=== PATIENT | female | born 1935 | race Caucasian/White ===

== ENCOUNTER → 2021-10-16 | Outpatient (CLI) | payer OTHER ==
[2021-10-16 12:57] LABS: Basophils # (auto) 0 10 ^3/uL (0-0.2); Basophils % (auto) 0.4 % (0.0-2.0); Eosinophils # (auto) 0.2 10 ^3/uL (0-0.8); Eosinophils % (auto) 2.9 % (0.0-7.0); Hematocrit 42.3 % (36.0-46.0); Lymphocytes # (auto) 1.5 10 ^3/uL (0.4-5.4); Lymphocytes % (auto) 27.2 % (10.0-50.0); Mean Corpuscular Hemoglobin 29.2 pg (28.0-32.0); Mean Corpuscular Hgb Conc. 33.2 g/dL (32.0-36.0); Mean Corpuscular Volume 87.8 fL (80.0-100.0); Monocytes # (auto) 0.3 10 ^3/uL (0-1.3); Monocytes % (auto) 6.2 % (0.0-12.0); Neutrophils # (auto) 3.4 10 ^3/uL (1.6-8.6); Neutrophils % (auto) 63.3 % (37.0-80.0); Red Blood Cells 4.81 10^6/uL (4.0-5.20); Red Cell Distribution Width 15.3 % (11.8-14.3); White Blood Cell 5.4 10^3/uL (4.4-10.8)
[2021-10-16 13:14] LABS: Albumin 2.7 g/dL (3.4-5.0); Calcium 7.4 mg/dL (8.5-10.1)
[2021-10-16 13:18] LABS: BUN/Creatinine Ratio 18.5; Bilirubin, Total 0.5 mg/dL (0.2-1.0); CRP High Sensitivity 0.48 mg/dL (< 0.3); Total Protein 6.8 g/dL (6.4-8.2)
[2021-10-17 10:09] LABS: Potassium 2.9 mmol/L (3.5-5.1)
[2021-10-17 16:08] LABS: Potassium 3.6 mmol/L (3.5-5.1)
== END | disposition home or self-care (01) ==
LOC: EDSTATUS 11:26 → LAB 12:15
PROVIDERS: ATTEND Podiatrist
DX: E78.6 Lipoprotein deficiency (principal)
CPT/HCPCS: 36415; 80051; 80053; 85025; 85652; 86141

== ENCOUNTER → 2021-10-24 | Outpatient (CLI) | payer OTHER ==
[2021-10-24 13:03] LABS: Basophils # (auto) 0 10 ^3/uL (0-0.2); Basophils % (auto) 0.7 % (0.0-2.0); Eosinophils # (auto) 0.2 10 ^3/uL (0-0.8); Eosinophils % (auto) 4.3 % (0.0-7.0); Hemoglobin 12.5 g/dL (12.2-16.2); Lymphocytes # (auto) 1.2 10 ^3/uL (0.4-5.4); Lymphocytes % (auto) 23.9 % (10.0-50.0); Mean Corpuscular Hemoglobin 29.5 pg (28.0-32.0); Mean Corpuscular Hgb Conc. 33.9 g/dL (32.0-36.0); Monocytes # (auto) 0.4 10 ^3/uL (0-1.3); Monocytes % (auto) 8.6 % (0.0-12.0); Neutrophils # (auto) 3.1 10 ^3/uL (1.6-8.6); Neutrophils % (auto) 62.5 % (37.0-80.0); Red Blood Cells 4.25 10^6/uL (4.0-5.20); Red Cell Distribution Width 14.3 % (11.8-14.3)
[2021-10-24 13:16] LABS: Albumin 2.4 g/dL (3.4-5.0); Calcium 7.2 mg/dL (8.5-10.1)
[2021-10-24 13:24] LABS: BUN/Creatinine Ratio 27.1; Bilirubin, Total 0.6 mg/dL (0.2-1.0); CRP High Sensitivity 0.86 mg/dL (< 0.3); Total Protein 5.8 g/dL (6.4-8.2)
[2021-10-24 13:28] LABS: Potassium 2.5 mmol/L (3.5-5.1)
== END | disposition home or self-care (01) ==
LOC: LAB 12:48
PROVIDERS: ATTEND Podiatrist
DX: S71.029A Laceration with foreign body, unspecified hip, initial encounter (principal); L03.90 Cellulitis, unspecified; X58.XXXA Exposure to other specified factors, initial encounter; Y93.89 Activity, other specified; Y92.89 Other specified places as the place of occurrence of the external cause; Y99.8 Other external cause status
CPT/HCPCS: 36415; 80053; 82550; 85025; 85652; 86141

== ENCOUNTER → 2021-11-01 | Outpatient (CLI) | payer OTHER ==
[2021-11-01 17:07] LABS: Potassium 3.7 mmol/L (3.5-5.1)
== END | disposition home or self-care (01) ==
LOC: LAB 16:07
PROVIDERS: ATTEND Internal Medicine
DX: E87.6 Hypokalemia (principal)
CPT/HCPCS: 36415; 80051

== ENCOUNTER → 2021-12-29 | Outpatient (CLI) | payer OTHER ==
[2021-12-29 14:36] LABS: Basophils # (auto) 0 10 ^3/uL (0-0.2); Basophils % (auto) 0.7 % (0.0-2.0); Eosinophils # (auto) 0.2 10 ^3/uL (0-0.8); Hematocrit 46.1 % (36.0-46.0); Hemoglobin 14.6 g/dL (12.2-16.2); Lymphocytes # (auto) 1.2 10 ^3/uL (0.4-5.4); Lymphocytes % (auto) 22.7 % (10.0-50.0); Mean Corpuscular Hemoglobin 28.1 pg (28.0-32.0); Mean Corpuscular Hgb Conc. 31.6 g/dL (32.0-36.0); Mean Corpuscular Volume 88.9 fL (80.0-100.0); Monocytes # (auto) 0.5 10 ^3/uL (0-1.3); Monocytes % (auto) 8.8 % (0.0-12.0); Neutrophils # (auto) 3.4 10 ^3/uL (1.6-8.6); Neutrophils % (auto) 63.8 % (37.0-80.0); Nucleated Red Blood Cells % 0.1 %; Red Blood Cells 5.19 10^6/uL (4.0-5.20); Red Cell Distribution Width 15.3 % (11.8-14.3); White Blood Cell 5.4 10^3/uL (4.4-10.8)
[2021-12-29 15:07] LABS: BUN/Creatinine Ratio 18.2; Calcium 8.2 mg/dL (8.5-10.1); Potassium 3.9 mmol/L (3.5-5.1)
== END | disposition home or self-care (01) ==
LOC: LAB 14:10
PROVIDERS: ATTEND Internal Medicine
DX: M86.9 Osteomyelitis, unspecified (principal); E87.6 Hypokalemia; L97.325 Non-pressure chronic ulcer of left ankle with muscle involvement without evidence of necrosis
CPT/HCPCS: 36415; 80048; 85025; 85652

== ENCOUNTER 2023-08-30 17:06 | Inpatient (IN) | payer OTHER ==
[~2023-08-30] VITALS: Ht 154.9 cm; Wt 52.1 kg
[2023-08-30 18:00] VITALS: PULSE 106; RESP 24; O2SAT 98
[2023-08-30 19:30] VITALS: PULSE 107; RESP 22; O2SAT 96
[2023-08-30 20:22] LABS: Alanine Aminotransferase 20 U/L (7-40); Albumin 3.1 g/dL (3.2-4.8); Alkaline Phosphatase 91 U/L (46-116); Anion Gap 12 (5-15); Aspartate Aminotransferase 62 U/L (13-40); BUN/Creatinine Ratio 14.1 (10.0-20.0); Bilirubin, Total 1.3 mg/dL (0.2-1.0); Blood Urea Nitrogen 11 mg/dL (9-23); Calcium 8.2 mg/dL (8.5-10.1); Carbon Dioxide 29 mmol/L (20-30); Chloride 85 mmol/L (98-107); Glucose 107 mg/dL (74-106); Potassium 3.6 mmol/L (3.5-5.1); Sodium 126 mmol/L (136-145); Total Protein 6.8 g/dL (5.7-8.2)
[2023-08-30 20:31] LABS: CRP High Sensitivity 11.13 mg/dL (<1.0)
[2023-08-30 20:56] LABS: Magnesium 2.1 mg/dL (1.6-2.6)
[2023-08-30 21:00] LABS: Hematocrit 36.8 % (36.0-46.0); Hemoglobin 12.3 g/dL (12.2-16.2); Mean Corpuscular Hgb Conc. 33.6 g/dL (32.0-36.0); Mean Corpuscular Volume 83.4 fL (80.0-100.0); Red Blood Cells 4.41 10^6/uL (4.0-5.20); Red Cell Distribution Width 15.2 % (11.8-14.3); White Blood Cell 13.6 10^3/uL (4.4-10.8)
[2023-08-30] MEDS: LACTATED RINGER S IV ONE (21:01)
[2023-08-30 21:19] LABS: INR 1.37 (0.9-1.15); Prothrombin Time 14.1 sec (9.3-11.8)
[2023-08-30 21:32] LABS: Urine Bacteria MOD /hpf (None Seen); Urine Blood TRACE /uL (Negative); Urine Clarity Turbid (Clear); Urine Color Light-Orange (Yellow); Urine Protein, UAD 1+ (Negative); Urine Specific Gravity 1.008 (1.001-1.035); Urine Urobilinogen Normal (Negative); Urine WBC 1075 /hpf (0 - 5); Urine WBC Clumps PRESENT /hpf (None Seen)
[2023-08-30 21:39] LABS: Lactic Acid w/Reflex 2.5 mmol/L (0.4-2.0)
[2023-08-30 21:44] LABS: Basophils % (manual) 0 (0.0-2.0); Blast Cells 0; Eosinophils % (manual) 0 (0-7); Metamyelocytes % 0; Myelocytes % 0; Promyelocytes % 0; Reactive Lymphocytes 0
[2023-08-30 21:57] LABS: Band Neutrophils % (manual) 13; Lymphocytes % (manual) 4 (10.0-50.0); Monocytes % (manual) 2 (0-12); Platelet Estimate Adequate
[2023-08-30 22:16] LABS: Erythrocyte Sedimentation Rate 74 mm/hr (0-20)
[2023-08-30] MEDS: PIPERACILLIN-TAZOB 3.375GM 100 ML IV ONE (22:22)
[2023-08-30] MEDS: LINEZOLID 600MG/300ML 300 ML IV ONE (23:59)
[2023-08-31] MEDS: SODIUM CHLORIDE 0.9% 500 ML IV ONE (01:14)
[2023-08-31] MEDS ORDERED: ACETAMINOPHEN 325 MG TAB PO PRN (01:15)
[2023-08-31] MEDS ORDERED: ONDANSETRON HCL 4 MG/2 ML VIAL IV PRN (01:15)
[2023-08-31] MEDS ORDERED: hydrALAZINE HCL 20 MG/ML VL IV PRN (01:15)
[2023-08-31] MEDS ORDERED: DOCUSATE SOD 100 MG CAP PO PRN (01:15)
[2023-08-31] MEDS ORDERED: HYDROcodone-ACET 5/325MG TAB PO PRN (01:15)
[2023-08-31] MEDS: SODIUM CHLORIDE 0.9% 1,000 ML IV SCH (01:41)
[2023-08-31] MEDS ORDERED: MORPHINE SULFATE INJ 2 MG/ml SYRG IV PRN (05:00)
[2023-08-31] MEDS ORDERED: NITROGLYCERIN 0.4 MG SL TAB SL PRN (05:00)
[2023-08-31 05:13] LABS: Basophils # (auto) 0 10 ^3/uL (0-0.2); Basophils % (auto) 0.1 % (0.0-2.0); Eosinophils # (auto) 0 10 ^3/uL (0-0.8); Hematocrit 29.3 % (36.0-46.0); Lymphocytes # (auto) 1.1 10 ^3/uL (0.4-5.4); Lymphocytes % (auto) 6.9 % (10.0-50.0); Mean Corpuscular Hemoglobin 28.4 pg (28.0-32.0); Mean Corpuscular Hgb Conc. 34.1 g/dL (32.0-36.0); Mean Corpuscular Volume 83.2 fL (80.0-100.0); Monocytes # (auto) 0.8 10 ^3/uL (0-1.3); Monocytes % (auto) 5.1 % (0.0-12.0); Neutrophils % (auto) 87.9 % (37.0-80.0); Red Blood Cells 3.52 10^6/uL (4.0-5.20); Red Cell Distribution Width 14.9 % (11.8-14.3); White Blood Cell 15.9 10^3/uL (4.4-10.8)
[2023-08-31 05:34] LABS: Alanine Aminotransferase 14 U/L (7-40); Alkaline Phosphatase 57 U/L (46-116); Anion Gap 3 (5-15); Aspartate Aminotransferase 38 U/L (13-40); BUN/Creatinine Ratio 24.5 (10.0-20.0); Bilirubin, Total 0.8 mg/dL (0.2-1.0); Blood Urea Nitrogen 13 mg/dL (9-23); Carbon Dioxide 34 mmol/L (20-30); Chloride 91 mmol/L (98-107); Glucose 119 mg/dL (74-106); Potassium 2.7 mmol/L (3.5-5.1); Sodium 128 mmol/L (136-145); Total Protein 4.7 g/dL (5.7-8.2)
[2023-08-31] MEDS: PIPERACILLIN-TAZOB 3.375GM 100 ML IV SCH ×2 (06:00→16:48)
[2023-08-31] MEDS: ALBUMIN 25% 50 ML IV ONE (06:22)
[2023-08-31 08:00] VITALS: PULSE 68; RESP 20; O2SAT 100
[2023-08-31] MEDS: ZINC SULFATE 220mg CAP or TAB PO SCH (09:55)
[2023-08-31] MEDS: ASPirin 81 mg TAB PO SCH (09:55)
[2023-08-31] MEDS: ASCORBIC ACID 500 MG TAB PO SCH (09:56)
[2023-08-31] MEDS: CEFEPIME 1GM/ 50ML 50 ML IV ONE (10:23)
[2023-08-31] MEDS: FAMOTIDINE (10MG/ML) 2ML VL IV SCH (10:34)
[2023-08-31] MEDS: CEFEPIME 1GM/ 50ML 50 ML IV SCH (10:34)
[2023-08-31] MEDS: MIDODRINE HCL 10 MG TAB PO SCH (12:00)
[2023-08-31] MEDS: metroNIDAZOLE 500MG/100ML 100 ML IV ONE (14:12)
[2023-08-31] MEDS: metroNIDAZOLE 500MG/100ML 100 ML IV SCH (14:17)
[2023-08-31] MEDS ORDERED: VANCOMYCIN PER PHARMACY 0 MG IV SCH (15:30)
[2023-08-31] MEDS: POTASSIUM CHL 20MEQ/100ML 100 ML IV SCH (16:21)
[2023-08-31 17:00] VITALS: BP 107/58; PULSE 64; RESP 16; TEMP 96; O2SAT 90
[2023-08-31 20:00] VITALS: PULSE 60; PULSE 69; RESP 16
[2023-08-31 21:00] VITALS: BP 95/52; PULSE 58; RESP 15; O2SAT 94
[2023-08-31] MEDS: LINEZOLID 600MG/300ML 300 ML IV SCH (21:42)
[2023-09-01] VITALS (8 sets, daily range): BP systolic 93–112; BP diastolic 32–57; PULSE 53–69; RESP 15–20; TEMP 97.2–97.7; O2SAT 95–100
[2023-09-01 05:49] LABS: Basophils # (auto) 0 10 ^3/uL (0-0.2); Basophils % (auto) 0.2 % (0.0-2.0); Eosinophils # (auto) 0.1 10 ^3/uL (0-0.8); Eosinophils % (auto) 1.5 % (0.0-7.0); Hematocrit 30.5 % (36.0-46.0); Hemoglobin 10.3 g/dL (12.2-16.2); Lymphocytes # (auto) 0.9 10 ^3/uL (0.4-5.4); Lymphocytes % (auto) 15.1 % (10.0-50.0); Mean Corpuscular Hemoglobin 28.8 pg (28.0-32.0); Mean Corpuscular Hgb Conc. 33.8 g/dL (32.0-36.0); Mean Corpuscular Volume 85.3 fL (80.0-100.0); Monocytes # (auto) 0.4 10 ^3/uL (0-1.3); Monocytes % (auto) 6.9 % (0.0-12.0); Neutrophils # (auto) 4.8 10 ^3/uL (1.6-8.6); Neutrophils % (auto) 76.3 % (37.0-80.0); Nucleated Red Blood Cells % 0.2 %; Red Blood Cells 3.57 10^6/uL (4.0-5.20); Red Cell Distribution Width 15.3 % (11.8-14.3); White Blood Cell 6.3 10^3/uL (4.4-10.8)
[2023-09-01 05:50] LABS: Alanine Aminotransferase 11 U/L (7-40); Alkaline Phosphatase 49 U/L (46-116); Anion Gap 6 (5-15); Aspartate Aminotransferase 37 U/L (13-40); Bilirubin, Total 0.7 mg/dL (0.2-1.0); Calcium 7.1 mg/dL (8.7-10.4); Carbon Dioxide 26 mmol/L (20-30); Chloride 100 mmol/L (98-107); Glucose 82 mg/dL (74-106); Potassium 3.8 mmol/L (3.5-5.1); Sodium 132 mmol/L (136-145); Total Protein 4.5 g/dL (5.7-8.2)
[2023-09-01 06:04] LABS: BUN/Creatinine Ratio 12.8 (10.0-20.0); Blood Urea Nitrogen < 5 mg/dL (9-23)
[2023-09-01] MEDS: MUPIROCIN 2% OINT 15gm or 22gm FOR MRSA NARES EACHNOSTRI SCH (22:00)
[2023-09-01] MEDS: CLINDAMYCIN 600MG IV 50 ML IV SCH (22:07)
[2023-09-02 01:14] VITALS: BP 117/55; PULSE 74; RESP 18; TEMP 98.6; O2SAT 96
[2023-09-02 05:00] VITALS: BP 112/55; PULSE 64; RESP 14; TEMP 96.2; O2SAT 94
[2023-09-02 09:34] VITALS: BP 111/55; PULSE 72; RESP 20; TEMP 97.8; O2SAT 100
[2023-09-02] MEDS ORDERED: SODIUM CHLORIDE LOCK 10 ML ONE (09:55)
[2023-09-02] MEDS ORDERED: MIDAZOLAM HCL 2MG/2ML 2ml VIAL (1mg/ml) ONE (09:55)
[2023-09-02] MEDS ORDERED: KETAMINE 50mg/ML 1ml syringe ONE (09:55)
[2023-09-02] MEDS ORDERED: fentaNYL CITRATE 100 MCG/2 ML VL ONE (09:55)
[2023-09-02] MEDS ORDERED: ONDANSETRON HCL 4 MG/2 ML VIAL ONE (09:56)
[2023-09-02] MEDS ORDERED: PROPOFOL 10 MG/ML 20 ML IV ONE (09:56)
[2023-09-02] MEDS ORDERED: ONDANSETRON HCL 4 MG/2 ML VIAL IV ONE (10:30)
[2023-09-02] MEDS ORDERED: MORPHINE SULFATE INJ 2 MG/ml SYRG IV PRN (10:30)
[2023-09-02] MEDS ORDERED: HYDROmorphone HCL 2 MG/ML VL/or syr IV PRN ×2 (10:30)
[2023-09-02] MEDS ORDERED: ceFAZolin 2 GM/D5W50ml 50 ML IV ONE (10:51)
[2023-09-02] MEDS ORDERED: ROPIVACAINE 0.5% (5MG/ML) 20ML AMPULE IJ ONE (10:57)
[2023-09-02] MEDS: BUPIVACAINE HCL 0.25% P/F 10 ML VIAL ONE (11:50)
[2023-09-02] MEDS: LIDOCAINE 1% HCL (LOCAL ANESTH.) INJ 20ML MDV ONE (11:50)
[2023-09-02 12:00] VITALS: O2SAT 96
[2023-09-02 18:09] VITALS: BP 125/71; PULSE 67; RESP 20; TEMP 97.8; O2SAT 100
[2023-09-02 20:00] VITALS: PULSE 67
[2023-09-03 01:00] VITALS: BP 110/53; PULSE 61; RESP 17; TEMP 97; O2SAT 100
[2023-09-03 05:00] VITALS: BP 119/57; PULSE 62; RESP 18; TEMP 97; O2SAT 100
[2023-09-03 06:52] LABS: Alanine Aminotransferase 10 U/L (7-40); Albumin 1.9 g/dL (3.2-4.8); Alkaline Phosphatase 46 U/L (46-116); Anion Gap 6 (5-15); Aspartate Aminotransferase 28 U/L (13-40); Calcium 6.9 mg/dL (8.7-10.4); Carbon Dioxide 28 mmol/L (20-30); Chloride 102 mmol/L (98-107); Glucose 66 mg/dL (74-106); Magnesium 1.6 mg/dL (1.6-2.6); Potassium 2.9 mmol/L (3.5-5.1); Sodium 136 mmol/L (136-145)
[2023-09-03 06:53] LABS: Bilirubin, Total 0.5 mg/dL (0.2-1.0); Total Protein 4.6 g/dL (5.7-8.2)
[2023-09-03 06:56] LABS: Basophils # (auto) 0 10 ^3/uL (0-0.2); Basophils % (auto) 0.3 % (0.0-2.0); Eosinophils # (auto) 0.1 10 ^3/uL (0-0.8); Eosinophils % (auto) 1.9 % (0.0-7.0); Hematocrit 33.3 % (36.0-46.0); Hemoglobin 10.9 g/dL (12.2-16.2); Lymphocytes # (auto) 0.8 10 ^3/uL (0.4-5.4); Lymphocytes % (auto) 18.2 % (10.0-50.0); Mean Corpuscular Hemoglobin 27.5 pg (28.0-32.0); Mean Corpuscular Hgb Conc. 32.8 g/dL (32.0-36.0); Mean Corpuscular Volume 83.8 fL (80.0-100.0); Monocytes # (auto) 0.3 10 ^3/uL (0-1.3); Monocytes % (auto) 6.2 % (0.0-12.0); Neutrophils # (auto) 3.4 10 ^3/uL (1.6-8.6); Neutrophils % (auto) 73.4 % (37.0-80.0); Nucleated Red Blood Cells % 0.1 %; Red Blood Cells 3.98 10^6/uL (4.0-5.20); Red Cell Distribution Width 15.1 % (11.8-14.3); White Blood Cell 4.6 10^3/uL (4.4-10.8)
[2023-09-03 07:00] LABS: BUN/Creatinine Ratio 12.5 (10.0-20.0); Blood Urea Nitrogen < 5 mg/dL (9-23)
[2023-09-03 10:58] VITALS: BP 112/59; PULSE 69; RESP 20; TEMP 97.8; O2SAT 100
[2023-09-03] MEDS: POTASSIUM CHL 20MEQ/100ML 100 ML IV ONE (12:05)
[2023-09-03] MEDS: MAGNESIUM SULFATE 1GM/100ML 100 ML IV SCH (12:05)
[2023-09-03] MEDS: cefTRIAXone 2GM/50ML D5W 50 ML IV ONE (14:58)
[2023-09-03 17:08] VITALS: BP 115/56; PULSE 65; RESP 20; TEMP 97.4; O2SAT 98
[2023-09-03 20:00] VITALS: PULSE 70; PULSE 87
[2023-09-03 21:00] VITALS: BP 117/56; PULSE 73; RESP 16; TEMP 97.4; O2SAT 94
[2023-09-04] VITALS (7 sets, daily range): BP systolic 100–121; BP diastolic 38–58; PULSE 53–87; RESP 16–19; TEMP 36.7; O2SAT 99–100
[2023-09-04 06:55] LABS: Anion Gap 6 (5-15); Carbon Dioxide 29 mmol/L (20-30); Chloride 103 mmol/L (98-107); Potassium 2.7 mmol/L (3.5-5.1); Sodium 138 mmol/L (136-145)
[2023-09-04 06:56] LABS: Calcium 6.9 mg/dL (8.7-10.4)
[2023-09-04 07:00] LABS: Glucose 59 mg/dL (74-106)
[2023-09-04 07:11] LABS: BUN/Creatinine Ratio 14.3 (10.0-20.0); Blood Urea Nitrogen < 5 mg/dL (9-23)
[2023-09-04] MEDS: cefTRIAXone 2GM/50ML D5W 50 ML IV SCH (09:36)
[2023-09-04] MEDS ORDERED: CEPH125S34 PO ×2 (13:11→13:18)
[2023-09-04] MEDS ORDERED: MUPI2CRE17 EX ×2 (13:11→13:18)
== END 2023-09-04 17:54 | disposition hospice, home (50) | DRG 853 ==
LOC: ER 17:06 → TELE 08-31 04:55 → TELE-WESTW 08-31 15:41
PROVIDERS: ADMIT Nurse Practitioner Family; ATTEND Internal Medicine Geriatric Medicine
PROC: 3E0T3BZ Introduction of Anesthetic Agent into Peripheral Nerves and Plexi, Percutaneous Approach (ICD-10-PCS; 2023-09-02)
PROC: 0YPB0YZ Removal of Other Device from Left Lower Extremity, Open Approach (ICD-10-PCS; 2023-09-02)
PROC: 0JBR0ZZ Excision of Left Foot Subcutaneous Tissue and Fascia, Open Approach (ICD-10-PCS; principal; 2023-09-02 11:03)
DX: A41.50 Gram-negative sepsis, unspecified (principal); E43 Unspecified severe protein-calorie malnutrition; E87.1 Hypo-osmolality and hyponatremia; N39.0 Urinary tract infection, site not specified; E87.20 Acidosis, unspecified; L97.329 Non-pressure chronic ulcer of left ankle with unspecified severity; I16.0 Hypertensive urgency; F03.90 Unspecified dementia, unspecified severity, without behavioral disturbance, psychotic disturbance, mood disturbance, and anxiety; I95.9 Hypotension, unspecified; R79.89 Other specified abnormal findings of blood chemistry; L89.159 Pressure ulcer of sacral region, unspecified stage; L89.619 Pressure ulcer of right heel, unspecified stage; E87.6 Hypokalemia; R15.9 Full incontinence of feces; S81.802A Unspecified open wound, left lower leg, initial encounter; X58.XXXA Exposure to other specified factors, initial encounter; B96.20 Unspecified Escherichia coli [E. coli] as the cause of diseases classified elsewhere; Z88.1 Allergy status to other antibiotic agents; Z88.2 Allergy status to sulfonamides; Y93.89 Activity, other specified; Y92.89 Other specified places as the place of occurrence of the external cause; Y99.8 Other external cause status; Z74.01 Bed confinement status; Z68.21 Body mass index [BMI] 21.0-21.9, adult
CPT/HCPCS: 36415; 71045; 73600; 73610; 76000; 80048; 80053; 81001; 83605; 83735; 83880; 84484; 85007; 85025; 85027; 85610; 85652; 85730; 86141; 87040; 87070; 87075; 87077; 87081; 87086; 87088; 87186; 87205; 92507; 92610; G0378; J2001; J2250; J2405; J2543; J2704; J3480; J3490